=== PATIENT | female | born 1995 | race Caucasian/White ===

== ENCOUNTER 2020-09-22 18:19 | Emergency (ER) | payer MEDICAID ==
[2020-09-22] MEDS ORDERED: methylPREDNISolone SOD SUCCI 125 MG/2 ML VIAL IV STA (18:28)
[2020-09-22] MEDS ORDERED: FAMOTIDINE 20 MG/2 ML VIAL IV STA (18:28)
[2020-09-22] MEDS ORDERED: SODIUM CHLORIDE 0.9% 500 ML 500 ML IV ONE (18:29)
[2020-09-22] MEDS ORDERED: diphenhydrAMINE 50 MG/ML 1 ML VIAL IVP STA (18:59)
--- NOTE | 2020-09-22 22:15 | ED ---
Allergic Reaction HPI - General Chief complaint: Allergic Reaction Stated complaint: allergic reaction/swelling Time Seen by Provider: 09/22/20 18:28 Source: patient Mode of arrival: ambulatory Limitations: no limitations - History of Present Illness Initial Comments: Very pleasant 25 or female presenting today for chief complaint of ALLERGIC reaction. Patient states that she has been on minocycline for the past week she states that she was out yesterday restaurant and ate strength she states she noticed some slight itching before bed however woke up with more itching. She states that she normally she states she is a leftover shrimp at noon and after that she developed hives on her wrists legs back of her neck and on her tongue. Patient denies any difficulty breathing swallowing or tolerating oral secretions. She denies any wheezing nausea vomiting diarrhea. Patient states she is concerned she is having a possible ALLERGIC reaction to either the antibiotic or shellfish and presented to the emergency department today for treatment. Patient appears nontoxic on arrival. - Related Data Home Medications Medication Instructions Recorded Confirmed Atomoxetine HCl [Strattera] 80 mg PO QAM 09/22/20 09/22/20 Clindamycin Phos/Benzoyl Perox 1 applic TOPICAL DAILY PRN 09/22/20 09/22/20 [Benzaclin Gel] Minocycline HCl [Minocin] 100 mg PO DAILY 09/22/20 09/22/20 Previous Rx's Medication Instructions Recorded EPINEPHrine (Auto Inject) [Epipen] 0.3 mg IM ONCE PRN 1 Days #2 pen 09/22/20 predniSONE 50 mg PO DAILY 4 Days #4 tab 09/22/20 Allergies Allergy/AdvReac Type Severity Reaction Status Date / Time minocycline Allergy Rash/Hives Verified 09/23/20 12:45 shellfish derived [Shellfish] Allergy Rash/Hives Verified 09/23/20 12:45 Review of Systems ROS Statement: Those systems with pertinent positive or pertinent negative responses have been documented in the HPI. ROS Other: All systems not noted in ROS Statement are negative. Past Medical History Past Medical History: No Reported History History of Any Multi-Drug Resistant Organisms: None Reported Past Surgical History: No Surgical Hx Reported Past Psychological History: Anxiety Smoking Status: Never smoker Past Alcohol Use History: None Reported Past Drug Use History: None Reported General Exam - General Exam Comments Initial Comments: General: The patient is awake and alert, in no distress Eye: Pupils are equal, round and reactive to light, extra-ocular movements are intact. No nystagmus. There is normal conjunctiva bilaterally. No signs of icterus. Ears, nose, mouth and throat: There are moist mucous membranes and no oral lesions. No lip or tongue swelling appreciated. Neck: The neck is supple, there is no tenderness or JVD. Cardiovascular: There is a regular rate and rhythm. No murmur, rub or gallop is appreciated. Respiratory: Lungs are clear to auscultation, respirations are non-labored, breath sounds are equal. No wheezes, stridor, rales, or rhonchi. Gastrointestinal: Soft, non-distended, non-tender abdomen without masses or organomegaly noted. There is no rebound or guarding present. Musculoskeletal: Normal ROM, no tenderness. Strength 5/5. Sensation intact. Pulses equal bilaterally 2+. Neurological: A&O x 3. CN II-XII intact, There are no obvious motor or sensory deficits. Coordination appears grossly intact. Speech is normal. Skin: Skin is warm and dry. Raised wheals on the posterior right neck lower extremities bilaterally, wrists bilaterally, one noted on tongueand can't tongue swelling oropharynx is patent, b/l ear swelling Psychiatric: Cooperative, appropriate mood & affect, normal judgment. Limitations: no limitations Course Vital Signs 09/22/20 09/22/20 09/22/20 18:22 18:49 19:47 Temperature 98.4 F Pulse Rate 128 H 89 Respiratory 20 18 16 Rate Blood Pressure 135/82 132/72 O2 Sat by Pulse 98 100 Oximetry 09/22/20 09/22/20 09/22/20 20:48 22:28 23:30 Temperature 98.5 F Pulse Rate 97 105 H 112 H Respiratory 16 18 16 Rate Blood Pressure 130/75 135/85 117/61 O2 Sat by Pulse 100 99 100 Oximetry Medical Decision Making - Medical Decision Making Pt treated with solumedrol, pepcid, benadryl, slow improvement but no worsening. no tongue swelling. Patient evaluated by attending recommended small dose of epinephrine SQ. Patient agreeable. Monitored 1 hour. states she is feeling better. Patient states that she is ready to go home. Return parameters, use of epipen, avoidance all discussed with patient. patient discharged appearing well. Dr Rivers agreeable to care plan. Disposition Clinical Impression: Allergic reaction Disposition: HOME SELF-CARE Condition: Good Instructions (If sedation given, give patient instructions): Anaphylaxis (ED) Additional Instructions: Please use medication as discussed. Please follow-up with family doctor in the next 2 days. AVOID ALL SHELL FISH and DISCONTINUE THE ANTIBIOTIC. RECOMMEND ALLERGY TESTING. Please return to emergency room if the symptoms increase or worsen or for any other concerns. Prescriptions: EPINEPHrine (Auto Inject) [Epipen] 0.3 mg IM ONCE PRN 1 Days #2 pen PRN Reason: Anaphylaxis predniSONE 50 mg PO DAILY 4 Days #4 tab Is patient prescribed a controlled substance at d/c from ED?: No Referrals: Julio Rice MD [Primary Care Provider] - 1-2 days Time of Disposition: 22:14
[2020-09-22] MEDS ORDERED: EPINEPHrine 1 MG/ML 1 ML AMP IM STA (22:34)
[2020-09-22] MEDS ORDERED: EPINEPHrine 1 MG/ML 1 ML AMP SQ STA (22:37)
[2020-09-22] MEDS ORDERED: EPINEPHrine 1 MG/ML 1 ML AMP SQ ONE (22:38)
[2020-09-22 23:32] VITALS: BP 117/61; PULSE 112; RESP 16; TEMP 98.5
== END 2020-09-23 | disposition home or self-care (01) ==
LOC: EC 18:19
DX: T78.40XA Allergy, unspecified, initial encounter (principal); F41.9 Anxiety disorder, unspecified; Z79.899 Other long term (current) drug therapy; Z88.1 Allergy status to other antibiotic agents; Z91.013 Allergy to seafood
CPT/HCPCS: 99283; 96374; 96375 ×2; 96361; 96372; J0171; J1200; J2930

== ENCOUNTER 2020-09-23 12:37 | Emergency (ER) | payer MEDICAID ==
[2020-09-23 12:44] VITALS: RESP 18; TEMP 98.9
[2020-09-23] MEDS ORDERED: SODIUM CHLORIDE 0.9% 500 ML 500 ML IV STA (13:08)
[2020-09-23] MEDS ORDERED: FAMOTIDINE 20 MG/2 ML VIAL IV STA (13:08)
[2020-09-23] MEDS ORDERED: methylPREDNISolone SOD SUCCI 125 MG/2 ML VIAL IV STA (13:08)
[2020-09-23] MEDS ORDERED: diphenhydrAMINE 50 MG/ML 1 ML VIAL IVP STA (13:08)
--- NOTE | 2020-09-23 13:45 | ED ---
Allergic Reaction HPI - General Chief complaint: Allergic Reaction Stated complaint: Allergic reaction Time Seen by Provider: 09/23/20 12:50 Source: patient Mode of arrival: ambulatory Limitations: no limitations - History of Present Illness Initial Comments: Patient is a 25-year-old female presenting to emergency Department with an ALLERGIC reaction. Patient states she was in the ER last night for same complaint. She has been on minocycline for about 1 week to clear up some acne and then yesterday started noticing redness, irritation, hives and swelling over her extremities, neck and chest area. Patient states she did come to the ER did receive medication, her symptoms did improve over this morning she noticed swelling and redness started to come back and her hands and she again feels very itchy and irritated. Patient states she did take a Benadryl 25 mg at about 10 AM this morning along with 50 mg of prednisone. Patient states it did not seem to help her symptoms. She denies any trouble breathing, chest pain, shortness of breath, nausea, vomiting. She states only other thing she may have been ALLERGIC to is the night before symptoms started she did have some shrimp for dinner but she has had seafood in the past with no reactions. She denies being at this time. She has no further complaints. Upon arrival to the ER, her pulse is 105, rest of vitals normal. - Related Data Home Medications Medication Instructions Recorded Confirmed Atomoxetine HCl [Strattera] 80 mg PO QAM 09/22/20 09/22/20 Clindamycin Phos/Benzoyl Perox 1 applic TOPICAL DAILY PRN 09/22/20 09/22/20 [Benzaclin Gel] Minocycline HCl [Minocin] 100 mg PO DAILY 09/22/20 09/22/20 Previous Rx's Medication Instructions Recorded EPINEPHrine (Auto Inject) [Epipen] 0.3 mg IM ONCE PRN 1 Days #2 pen 09/22/20 predniSONE 50 mg PO DAILY 4 Days #4 tab 09/22/20 Allergies Allergy/AdvReac Type Severity Reaction Status Date / Time minocycline Allergy Rash/Hives Verified 09/23/20 12:45 shellfish derived [Shellfish] Allergy Rash/Hives Verified 09/23/20 12:45 Review of Systems ROS Statement: Those systems with pertinent positive or pertinent negative responses have been documented in the HPI. ROS Other: All systems not noted in ROS Statement are negative. Past Medical History Past Medical History: No Reported History History of Any Multi-Drug Resistant Organisms: None Reported Past Surgical History: No Surgical Hx Reported Past Psychological History: Anxiety Smoking Status: Never smoker Past Alcohol Use History: None Reported Past Drug Use History: None Reported General Exam - General Exam Comments Initial Comments: GENERAL: Patient is well-developed and well-nourished. Patient is nontoxic and in no acute distress. HEAD: Atraumatic, normocephalic. EYES: Pupils equal round and reactive to light, extraocular movements intact, sclera anicteric, conjunctiva are normal. Eyelids were unremarkable. ENT: TMs normal, nares patent, oropharynx clear without exudates. Moist mucous membranes. NECK: Normal range of motion, supple without lymphadenopathy or JVD. LUNGS: Unlabored respirations. Breath sounds clear to auscultation bilaterally and equal. No wheezes rales or rhonchi. HEART: Regular rate and rhythm without murmurs, rubs or gallops. ABDOMEN: Soft, nontender, normoactive bowel sounds. No guarding, no rebound. No masses appreciated. : Deferred MUSCULOSKELETAL: Normal extremities with adequate strength and normal range of motion. No clubbing or cyanosis. NEUROLOGICAL: Patient is alert and oriented x 3. Motor and sensory are also intact. Cranial nerves II through XII grossly intact. Symmetrical smile. Normal speech, normal gait. PSYCH: Normal mood, normal affect. SKIN: Warm, Dry, normal turgor,. Hives present mostly on upper extremities, bilateral feet. There is also some moderate swelling to the right hand. She is neurovascular intact. Limitations: no limitations Course Vital Signs 09/23/20 09/23/20 09/23/20 12:42 14:00 14:40 Temperature 98.9 F Pulse Rate 105 H 96 97 Respiratory 18 18 18 Rate Blood Pressure 126/81 129/71 125/68 O2 Sat by Pulse 98 98 99 Oximetry Medical Decision Making - Medical Decision Making Patient is a 25-year-old female presenting with ALLERGIC reaction to stay yesterday. Patient was in the ER last night for same complaint. She was feeling improvement in his symptoms restarted a few hours prior to arrival. She denies any shortness of breath, difficulty breathing, chest pains or throat swelling. She is most complaining of hives and swelling. She was slightly tachycardia, otherwise vitals are normal. We did restart an IV, fluids, Pepcid, Benadryl, steroids, epi. Her symptoms have been improving throughout her ER st ay. She continues to deny shortness of breath and trouble breathing. I discussed with patient to continue her already prescribed steroids and to add and a Pepcid as well as continue with Benadryl as needed. I also discussed avoiding baths or cold temperatures. Patient is in agreement with this plan of care. She is stable for discharge. Recommend following up with her PCP as well as ALLERGY testing. She is in agreement with this plan of care. Return parameters were discussed with the patient she verbalized understanding. Case discussed with Dr. Alston. Disposition Clinical Impression: Allergic reaction, Hives Disposition: HOME SELF-CARE Condition: Stable Instructions (If sedation given, give patient instructions): Urticaria (ED) Additional Instructions: Please return to the Emergency Department if symptoms worsen or any other con cerns. Continue with already prescribed steroids, restart tomorrow. Continue with Benadryl every 4-6 hours for itching, redness. May also continue with Pepcid. Follow-up with PCP and/or qa tech as discussed. Is patient prescribed a controlled substance at d/c from ED?: No Referrals: Julio Rice MD [Primary Care Provider] - 1-2 days
[2020-09-23] MEDS ORDERED: EPINEPHrine 1 MG/ML 1 ML AMP IM STA (14:34)
[2020-09-23 14:41] VITALS: BP 125/68; PULSE 97
== END 2020-09-23 14:49 | disposition home or self-care (01) ==
LOC: EC 12:37
DX: L50.0 Allergic urticaria (principal); T36.4X5A Adverse effect of tetracyclines, initial encounter; R00.0 Tachycardia, unspecified; F41.9 Anxiety disorder, unspecified; Z79.899 Other long term (current) drug therapy; Z88.1 Allergy status to other antibiotic agents; Z91.013 Allergy to seafood
CPT/HCPCS: 99283; 96374; 96375 ×2; 96361; 96372; J0171; J1200; J2930

== ENCOUNTER → 2023-03-19 | Outpatient (CLI) | payer MEDICAID ==
[2023-03-19 03:37] LABS: ALT 17 U/L (4-34); AST 23 U/L (14-36); African American GFR (CKD) >90 (>60 ml/min/1.73 sqM); Albumin 4.6 g/dL (3.5-5.0); Alkaline Phosphatase 53 U/L (38-126); Anion Gap 9 mmol/L; Blood Urea Nitrogen 13 mg/dL (7-17); Calcium 9.3 mg/dL (8.4-10.2); Carbon Dioxide 28 mmol/L (22-30); Chloride 102 mmol/L (98-107); Glucose 100 mg/dL (74-99); Non-African American GFR(CKD) >90 (>60 ml/min/1.73 sqM); Potassium 3.8 mmol/L (3.5-5.1); Sodium 139 mmol/L (137-145); Total Bilirubin 0.3 mg/dL (0.2-1.3); Total Protein 7.7 g/dL (6.3-8.2)
[2023-03-19 03:47] LABS: Basophils % (A) 0 %; Eosinophils # (A) 0.1 k/uL (0-0.7); Eosinophils % (A) 1 %; HCT 39.9 % (34.0-46.0); HGB 13.2 gm/dL (11.4-16.0); Lymphocytes # (A) 2.1 k/uL (1.0-4.8); Lymphocytes % (A) 26 %; MCH 29.9 pg (25.0-35.0); MCHC 33.2 g/dL (31.0-37.0); Mean Platelet Volume 7.9; Monocytes # (A) 0.3 k/uL (0-1.0); Monocytes % (A) 4 %; Neutrophils # (A) 5.3 k/uL (1.3-7.7); Neutrophils % (A) 65 %; Platelet Count 230 k/uL (150-450); RBC 4.43 m/uL (3.80-5.40); RDW 11.6 % (11.5-15.5); WBC 8.1 k/uL (3.8-10.6)
[2023-03-19 12:11] LABS: Chol/HDL Ratio 3.25 Ratio; LDL Cholesterol,Calculated 100.4 mg/dL (0.0-131.0)
== END | disposition home or self-care (01) ==
LOC: LAB 02:52
PROVIDERS: ATTEND Family Medicine
DX: Z00.00 Encounter for general adult medical examination without abnormal findings (principal)
CPT/HCPCS: 80053; 80061; 83036; 84443; 85025